=== PATIENT | female | born 1940 | race Caucasian/White ===

== ENCOUNTER 2017-05-17 17:19 | Inpatient (IN) | payer MEDICARE, OTHER ==
[~2017-05-17] VITALS: Ht 162.6 cm; Wt 66.4 kg
[2017-05-17 18:00] LABS: BASOPHIL 0.2 % (0-2); EOSINOPHIL 3.5 % (0-7); HCT 32.3 % (37.0-47.0); HGB 11.5 g/dl (12.5-16.0); LYMPHOCYTE 15.6 % (15-48); MCH 34.1 pg (25.0-31.0); MCHC 35.6 g/dL (32.0-36.0); MCV 95.8 fL (78.0-100.0); MONOCYTE 11.1 % (0-12); MPV 11.1 fL (6.0-9.5); NEUTROPHIL 69.6 % (41-80); PLT 168 K/uL (150-400); RBC 3.37 M/uL (4.20-5.40); RDW 12.8 % (11.5-14.0); WBC 12.3 K/uL (4.0-10.5)
[2017-05-17 18:04] LABS: INR 1.12 (0.9-1.2); PTT 30.6 SECONDS (23.2-31.4)
[2017-05-17 18:12] LABS: ALBUMIN 3.4 g/dL (3.4-4.8); BILIRUBIN - TOTAL 0.6 mg/dL (0.1-1.0); CREATININE 1.5 mg/dL (0.5-1.0); GLOBULIN (CALCULATION) 4.2 g/dL (2.2-4.2); POTASSIUM 3.2 mmol/L (3.5-5.1); TOTAL PROTEIN 7.6 g/dL (6.4-8.3)
[2017-05-17 18:14] LABS: TROPONIN T < 0.010 ng/mL
[2017-05-17 18:15] LABS: PRO-BNP 1595 pg/mL (0-450)
[2017-05-17 18:19] LABS: BILIRUBIN 1+ mg/dL (NEGATIVE); BLOOD NEGATIVE Ery/uL (NEGATIVE); CLARITY CLEAR (CLEAR); COLOR YELLOW (YELLOW); GLUCOSE (U) NORMAL (NORMAL); KETONE (U) NEGATIVE (NEGATIVE); LEUKOCYTES NEGATIVE Leu/uL (NEGATIVE); NITRITE NEGATIVE (NEGATIVE); PROTEIN 2+ mg/dL (NEGATIVE); SPECIFIC GRAVITY 1.025 (1.001-1.030); pH 5.5 (5.0-9.0)
[2017-05-17 18:27] LABS: BACTERIA TRACE; SQUAMOUS EPITHELIAL CELLS RARE; URINARY RBC RARE
[2017-05-17 18:28] LABS: AMORPHOUS URATES CRYSTALS MODERATE
[2017-05-18 00:05] LABS: CKMB 1.67 ng/mL (0.97-4.94); TROPONIN T 0.012 ng/mL
[2017-05-18 05:48] LABS: BASOPHIL 0 % (0-2); EOSINOPHIL 0 % (0-7); HCT 30.4 % (37.0-47.0); HGB 10.9 g/dl (12.5-16.0); LYMPHOCYTE 7.5 % (15-48); MCH 34.3 pg (25.0-31.0); MCHC 35.9 g/dL (32.0-36.0); MCV 95.6 fL (78.0-100.0); MONOCYTE 1.4 % (0-12); MPV 10.7 fL (6.0-9.5); NEUTROPHIL 91.1 % (41-80); PLT 141 K/uL (150-400); RBC 3.18 M/uL (4.20-5.40); RDW 12.7 % (11.5-14.0)
[2017-05-18 05:49] LABS: WBC 8.3 K/uL (4.0-10.5)
[2017-05-18 05:59] LABS: INR 1.21 (0.9-1.2); PROTHROMBIN TIME 14.9 SECONDS (11.7-14.0); PTT 43.6 SECONDS (23.2-31.4)
[2017-05-18 06:09] LABS: CKMB 1.81 ng/mL (0.97-4.94); TROPONIN T < 0.010 ng/mL
[2017-05-18 06:11] LABS: ALBUMIN 3.6 g/dL (3.4-4.8); BILIRUBIN - TOTAL 0.5 mg/dL (0.1-1.0); CREATININE 1.5 mg/dL (0.5-1.0); GLOBULIN (CALCULATION) 3.6 g/dL (2.2-4.2); MAGNESIUM 1.89 mg/dL (1.40-2.10); PHOSPHORUS 3.1 mg/dL (2.7-4.5); POTASSIUM 3.5 mmol/L (3.5-5.1); TOTAL PROTEIN 7.2 g/dL (6.4-8.3)
--- NOTE | 2017-05-18 17:23 | NUR ---
AFTER FIRST ASSESSMENT OF THE SHIFT MD SPOKE WITH AND ORDERED CT OF HEAD. PATIENT WAS NOTED TO BE LEANING TO LEFT SIDE, AAO X PERSON ONLY. STATED THAT SYMPTOMS HAVE BEEN PRESENT FOR 3-[address] OF HEAD CAME BACK NEGATIVE FOR HEMMORAGE. DR ORDERED TO TRANSFER PATIENT TO [facility] FOR MRI. WILL CONTINUE TO MONITOR.
== END 2017-05-19 02:25 | disposition other institution (70) | DRG 91 ==
LOC: FER 17:19 → FTCU 19:25
PROVIDERS: Emergency Medicine; ADMIT Internal Medicine Nephrology
DX: R29.810 Facial weakness (principal); J18.9 Pneumonia, unspecified organism; L89.151 Pressure ulcer of sacral region, stage 1; E11.9 Type 2 diabetes mellitus without complications; D63.8 Anemia in other chronic diseases classified elsewhere; G30.9 Alzheimer's disease, unspecified; J44.0 Chronic obstructive pulmonary disease with (acute) lower respiratory infection; I10 Essential (primary) hypertension; F02.80 Dementia in other diseases classified elsewhere, unspecified severity, without behavioral disturbance, psychotic disturbance, mood disturbance, and anxiety; R53.1 Weakness; E78.5 Hyperlipidemia, unspecified; R09.02 Hypoxemia; I25.10 Atherosclerotic heart disease of native coronary artery without angina pectoris; G47.33 Obstructive sleep apnea (adult) (pediatric); K21.9 Gastro-esophageal reflux disease without esophagitis; M10.9 Gout, unspecified; Z88.0 Allergy status to penicillin; Z88.2 Allergy status to sulfonamides; Z91.018 Allergy to other foods; Z91.010 Allergy to peanuts; Z79.899 Other long term (current) drug therapy
CPT/HCPCS: 36415; 36600; 70450; 71020; 80053; 81001; 82550; 82553; 82803; 82962; 83605; 83735; 83880; 84100; 84484; 85025; 85379; 85610; 85730; 87040; 87088; 87449; 93005; 93970; 94010; 94640; 97163; 97167; 97530; J1956; J2930

== ENCOUNTER 2020-12-08 14:06 | Inpatient (IN) | payer MEDICARE, OTHER ==
[~2020-12-08 14:06] MED LIST: ALLOPURINOL100 MG PO; ASPIR 8181 MG PO; ASPIRIN CHEWABL81 MG PO; BENZTROPINE MESY1 MG PO; BYSTOLIC10 MG PO; CARDIZEM CD120 MG PO; CERTAGEN1 EACH PO; CIPRO500 MG PO; CLARITIN10 MG PO; CLEOCIN300 MG PO; COZAAR100 MG PO; COZAAR50 MG PO; HALDOL5 MG PO; HYDROCODON-ACE1 EAC4 PO; JANUVIA100 MG PO; LASIX20 MG PO; LATUDA20 MG PO; LEVAQUIN500 MG PO; LOSARTAN-HCTZ1 EAC1 PO; LOVAZA1 GM PO; MEDROL 4MG DOSEP4 MG PO; METOPROLOL SUCC50 MG PO; METRONIDAZOLE500 MG PO; MIRTAZAPINE7.5 MG PO; MUCINEX 600MG600 MG PO; NORVASC5 MG PO; PERFOROMIS20 MCG/2 M INH; PREDNISONE 20MG20 MG PO; PRINIVIL20 MG PO; PROAIR HFA8.5 GM INH; REMERON15 MG PO; VIBRAMYCIN100 MG PO; [UNRECOGNIZED DRUG - OTHER] PO
[2020-12-08 16:18] LABS: BASOPHIL 0.7 % (0-2); EOSINOPHIL 3.7 % (0-7); HCT 37.4 % (37.0-47.0); HGB 12.7 g/dl (12.5-16.0); LYMPHOCYTE 28.2 % (15-48); MCV 97.1 fL (78.0-100.0); MONOCYTE 9.6 % (0-12); MPV 10.8 fL (6.0-9.5); NEUTROPHIL 57.5 % (41-80); NRBC 0; PLT 144 K/uL (150-400); RBC 3.85 M/uL (4.20-5.40); RDW 12.7 % (11.5-14.0); WBC 9.6 K/uL (4.0-10.5)
[2020-12-08 16:23] LABS: INR 1.01 (0.9-1.2); PROTHROMBIN TIME 12.6 SECONDS (11.4-13.6)
[2020-12-08 16:31] LABS: CORONAVIRUS 2019 SARS-COV-2 NEGATIVE (NEGATIVE); INFLUENZA A NAA NEGATIVE (NEGATIVE)
[2020-12-08 16:32] LABS: D-DIMER 2.43 ug/mLFEU (0.00-0.41)
[2020-12-08 16:49] LABS: ALBUMIN 3.2 g/dL (3.4-5.0); BILIRUBIN - TOTAL 0.4 mg/dL (0.2-1.0); BUN/CREAT RATIO (CALC) 11.4 RATIO; CREATININE 1.76 mg/dL (0.51-0.95); GLOBULIN (CALCULATION) 4.8 g/dL; POTASSIUM 3.7 mmol/L (3.5-5.1)
[2020-12-08] MEDS ORDERED: LEVOTHYROXINE75 MC2 PO (23:59)
[2020-12-09] MEDS ORDERED: MICRO-K10 MEQ PO
[2020-12-09 06:04] LABS: BASOPHIL 0.1 % (0-2); EOSINOPHIL 0 % (0-7); HCT 35.4 % (37.0-47.0); HGB 12.4 g/dl (12.5-16.0); LYMPHOCYTE 7.9 % (15-48); MCV 94.1 fL (78.0-100.0); MONOCYTE 0.8 % (0-12); MPV 10.9 fL (6.0-9.5); NRBC 0; PLT 160 K/uL (150-400); RBC 3.76 M/uL (4.20-5.40); RDW 12.8 % (11.5-14.0)
[2020-12-09 06:19] LABS: NEUTROPHIL 90.7 % (41-80)
[2020-12-09 06:37] LABS: ALBUMIN 2.9 g/dL (3.4-5.0); BILIRUBIN - TOTAL 0.4 mg/dL (0.2-1.0); BUN/CREAT RATIO (CALC) 13.9 RATIO; CREATININE 1.87 mg/dL (0.51-0.95); GLOBULIN (CALCULATION) 4.8 g/dL; POTASSIUM 3.6 mmol/L (3.5-5.1); TOTAL PROTEIN 7.7 g/dL (6.4-8.2)
[2020-12-10 04:59] LABS: BASOPHIL 0.2 % (0-2); EOSINOPHIL 0 % (0-7); LYMPHOCYTE 6.4 % (15-48); MCHC 34.4 g/dL (32.0-36.0); MCV 96.1 fL (78.0-100.0); MONOCYTE 2.9 % (0-12); MPV 11.3 fL (6.0-9.5); NEUTROPHIL 89.6 % (41-80); NRBC 0; PLT 147 K/uL (150-400); RBC 3.33 M/uL (4.20-5.40); RDW 12.9 % (11.5-14.0); WBC 17.9 K/uL (4.0-10.5)
[2020-12-10 05:17] LABS: BUN/CREAT RATIO (CALC) 16.7 RATIO; CREATININE 2.09 mg/dL (0.51-0.95); POTASSIUM 4.1 mmol/L (3.5-5.1)
[2020-12-11 05:58] LABS: BASOPHIL 0.2 % (0-2); EOSINOPHIL 0 % (0-7); HCT 34.4 % (37.0-47.0); HGB 12.1 g/dl (12.5-16.0); LYMPHOCYTE 6.1 % (15-48); MCH 33.3 pg (25.0-31.0); MCHC 35.2 g/dL (32.0-36.0); MCV 94.8 fL (78.0-100.0); MPV 11.2 fL (6.0-9.5); NEUTROPHIL 88.6 % (41-80); NRBC 0; PLT 182 K/uL (150-400); RBC 3.63 M/uL (4.20-5.40); RDW 12.7 % (11.5-14.0); WBC 19.4 K/uL (4.0-10.5)
[2020-12-11 06:12] LABS: C-REACTIVE PROTEIN 0.3 mg/dL (<=0.90); CREATININE 1.77 mg/dL (0.51-0.95); POTASSIUM 3.9 mmol/L (3.5-5.1)
[2020-12-12 07:23] LABS: BASOPHIL 0.2 % (0-2); EOSINOPHIL 0 % (0-7); HCT 34.6 % (37.0-47.0); HGB 12.1 g/dl (12.5-16.0); MCH 33.2 pg (25.0-31.0); MCV 94.8 fL (78.0-100.0); MONOCYTE 7.8 % (0-12); MPV 11.1 fL (6.0-9.5); NEUTROPHIL 81.2 % (41-80); NRBC 0; PLT 188 K/uL (150-400); RBC 3.65 M/uL (4.20-5.40); WBC 18.6 K/uL (4.0-10.5)
[2020-12-12 07:27] LABS: C-REACTIVE PROTEIN 0.3 mg/dL (<=0.90); CREATININE 1.58 mg/dL (0.51-0.95); POTASSIUM 3.6 mmol/L (3.5-5.1)
[2020-12-13 06:54] LABS: BASOPHIL 0.2 % (0-2); EOSINOPHIL 0.2 % (0-7); HCT 36.6 % (37.0-47.0); HGB 12.6 g/dl (12.5-16.0); LYMPHOCYTE 13.6 % (15-48); MCH 32.6 pg (25.0-31.0); MCHC 34.4 g/dL (32.0-36.0); MCV 94.8 fL (78.0-100.0); MONOCYTE 10.2 % (0-12); MPV 11.2 fL (6.0-9.5); NEUTROPHIL 73.7 % (41-80); NRBC 0.1; PLT 193 K/uL (150-400); RBC 3.86 M/uL (4.20-5.40); RDW 12.9 % (11.5-14.0); WBC 18.3 K/uL (4.0-10.5)
[2020-12-13 07:18] LABS: BUN/CREAT RATIO (CALC) 32.6 RATIO; CREATININE 1.38 mg/dL (0.51-0.95); POTASSIUM 3.7 mmol/L (3.5-5.1)
[2020-12-13 09:13] LABS: PRO-BNP 4557 pg/mL (<450)
--- NOTE | 2020-12-14 16:20 | NUR ---
12/14/20 Ms. Mckeon will be transferred to [facility]. [facility] was requested to brain picker 02 which had been delivered in anticipation of discharge.
[2020-12-15 06:50] LABS: BASOPHIL 0.4 % (0-2); EOSINOPHIL 2.1 % (0-7); HCT 39.5 % (37.0-47.0); HGB 13.7 g/dl (12.5-16.0); MCH 32.6 pg (25.0-31.0); MCHC 34.7 g/dL (32.0-36.0); MONOCYTE 8.2 % (0-12); MPV 11.2 fL (6.0-9.5); NEUTROPHIL 69.6 % (41-80); NRBC 0; PLT 193 K/uL (150-400); WBC 15.9 K/uL (4.0-10.5)
[2020-12-15 07:09] LABS: BUN/CREAT RATIO (CALC) 24.7 RATIO; CREATININE 1.46 mg/dL (0.51-0.95); POTASSIUM 3.4 mmol/L (3.5-5.1)
== END 2020-12-15 14:40 | disposition other institution (70) | DRG 193 ==
LOC: FER 14:06 → FMS 17:52
PROVIDERS: Allergy & Immunology Allergy; Emergency Medicine; Nurse Practitioner; ADMIT Internal Medicine
DX: J18.9 Pneumonia, unspecified organism (principal); J96.01 Acute respiratory failure with hypoxia; J44.0 Chronic obstructive pulmonary disease with (acute) lower respiratory infection; N17.9 Acute kidney failure, unspecified; I13.0 Hypertensive heart and chronic kidney disease with heart failure and stage 1 through stage 4 chronic kidney disease, or unspecified chronic kidney disease; J44.1 Chronic obstructive pulmonary disease with (acute) exacerbation; J98.19 Other pulmonary collapse; I25.10 Atherosclerotic heart disease of native coronary artery without angina pectoris; Z95.5 Presence of coronary angioplasty implant and graft; G47.33 Obstructive sleep apnea (adult) (pediatric); M10.9 Gout, unspecified; E78.5 Hyperlipidemia, unspecified; N18.30 Chronic kidney disease, stage 3 unspecified; E11.22 Type 2 diabetes mellitus with diabetic chronic kidney disease; E11.40 Type 2 diabetes mellitus with diabetic neuropathy, unspecified; Z20.822 Contact with and (suspected) exposure to COVID-19; M19.90 Unspecified osteoarthritis, unspecified site; K21.9 Gastro-esophageal reflux disease without esophagitis; I50.9 Heart failure, unspecified; Z66 Do not resuscitate; E03.9 Hypothyroidism, unspecified; J39.8 Other specified diseases of upper respiratory tract; T17.990A Other foreign object in respiratory tract, part unspecified in causing asphyxiation, initial encounter; Z79.82 Long term (current) use of aspirin; Z86.14 Personal history of Methicillin resistant Staphylococcus aureus infection; Z91.010 Allergy to peanuts; Z88.0 Allergy status to penicillin; Z88.2 Allergy status to sulfonamides; Z88.8 Allergy status to other drugs, medicaments and biological substances; Z91.018 Allergy to other foods; Z79.899 Other long term (current) drug therapy
CPT/HCPCS: 36415; 71045; 71250; 80048; 80053; 80202; 82962; 83880; 84145; 84484; 85025; 85379; 85610; 85730; 86140; 93005; 94640; 94667; 94668; 94760; 94762; 97162; 97530-GP; G0378; J0360; J1940; J1956; J2920; J2930; J3370; J7030; J7040; J7050; J7512; U0002

== ENCOUNTER 2021-04-11 15:18 | Inpatient (IN) | payer MEDICARE, OTHER ==
[~2021-04-11 15:18] MED LIST changes: +LEVOTHYROXINE75 MC2 PO; +MICRO-K10 MEQ PO
[2021-04-11 16:58] LABS: BASOPHIL 0.7 % (0-2); EOSINOPHIL 3.4 % (0-7); HCT 34.4 % (37.0-47.0); HGB 11.7 g/dl (12.5-16.0); LYMPHOCYTE 26.2 % (15-48); MCH 31.8 pg (25.0-31.0); MCV 93.5 fL (78.0-100.0); MONOCYTE 17.3 % (0-12); MPV 11.7 fL (6.0-9.5); NEUTROPHIL 52.2 % (41-80); NRBC 0; PLT 119 K/uL (150-400); RBC 3.68 M/uL (4.20-5.40); RDW 13.4 % (11.5-14.0); WBC 6.1 K/uL (4.0-10.5)
[2021-04-11 17:32] LABS: BUN/CREAT RATIO (CALC) 8.8 RATIO; CREATININE 4.87 mg/dL (0.51-0.95); POTASSIUM 3.8 mmol/L (3.5-5.1)
[2021-04-11 19:54] LABS: BILIRUBIN NEGATIVE (NEGATIVE); BLOOD NEGATIVE Ery/uL (NEGATIVE); CLARITY CLEAR (CLEAR); COLOR YELLOW (YELLOW); GLUCOSE (U) NORMAL (NORMAL); LEUKOCYTES NEGATIVE Leu/uL (NEGATIVE); NITRITE NEGATIVE (NEGATIVE); PROTEIN 3+ mg/dL (NEGATIVE); UROBILINOGEN 0.2 mg/dL (0.2-1.0); pH 6.5 (5.0-9.0)
[2021-04-11 20:00] LABS: BACTERIA 1+; URINARY RBC RARE
[2021-04-11 20:25] LABS: PROTHROMBIN TIME 12.5 SECONDS (11.4-13.6); PTT 29.7 SECONDS (22.2-34.7)
[2021-04-11 20:46] LABS: ALBUMIN 3.3 g/dL (3.4-5.0); BILIRUBIN - TOTAL 0.3 mg/dL (0.2-1.0); GLOBULIN (CALCULATION) 4.2 g/dL; TOTAL PROTEIN 7.5 g/dL (6.4-8.2)
[2021-04-11 20:48] LABS: CORONAVIRUS 2019 SARS-COV-2 NEGATIVE (NEGATIVE); INFLUENZA A NAA NEGATIVE (NEGATIVE)
[2021-04-11 20:50] LABS: BILIRUBIN - DIRECT <0.05 mg/dL (0.00-0.20); PHOSPHORUS 5.5 mg/dL (2.6-4.7)
[2021-04-11 20:51] LABS: MAGNESIUM 2.9 mg/dL (1.8-2.4)
[2021-04-12 07:06] LABS: BASOPHIL 0.6 % (0-2); HCT 30.7 % (37.0-47.0); HGB 10.7 g/dl (12.5-16.0); LYMPHOCYTE 33.1 % (15-48); MCH 32.7 pg (25.0-31.0); MCHC 34.9 g/dL (32.0-36.0); MCV 93.9 fL (78.0-100.0); MONOCYTE 14.7 % (0-12); MPV 11.6 fL (6.0-9.5); NEUTROPHIL 47.4 % (41-80); NRBC 0; RBC 3.27 M/uL (4.20-5.40); RDW 13.5 % (11.5-14.0); WBC 4.8 K/uL (4.0-10.5)
[2021-04-12 07:08] LABS: PLT 109 K/uL (150-400)
[2021-04-12 07:15] LABS: BILIRUBIN - TOTAL 0.3 mg/dL (0.2-1.0); BUN/CREAT RATIO (CALC) 8.9 RATIO; CREATININE 4.83 mg/dL (0.51-0.95); GLOBULIN (CALCULATION) 3.9 g/dL; POTASSIUM 3.4 mmol/L (3.5-5.1); TOTAL PROTEIN 6.9 g/dL (6.4-8.2)
[2021-04-12] MEDS ORDERED: HYDRALAZINE25 MG PO (10:53)
[2021-04-12] MEDS ORDERED: DALIRESP250 MCG PO (10:54)
[2021-04-12] MEDS ORDERED: SPIRIVA RESPIMAT4 GM INH (10:55)
[2021-04-12] MEDS ORDERED: AZELASTINE HCL6 ML EYEBOTH (10:56)
[2021-04-12] MEDS ORDERED: SPIRONOLACTONE25 M1 PO (10:58)
[2021-04-12] MEDS ORDERED: NYAMYC60 GM PO (10:59)
[2021-04-12] MEDS ORDERED: SSD25 GM TOP (11:00)
[2021-04-12] MEDS ORDERED: BYSTOLIC10 M1 PO (11:01)
[2021-04-12] MEDS ORDERED: LEVOTHYROXINE75 MC1 PO (11:03)
[2021-04-12] MEDS ORDERED: ROSUVASTATIN CAL5 MG PO (11:05)
--- NOTE | 2021-04-13 01:40 | NUR ---
Patient eyes glassy, coughing, patient sounds hoarse with communication. Temp 98.0 Lung sounds changed from dimished and scattered rhonchi from approximately 2336 to rales and expiratory wheezes. Vivek Sepulveda informed and in to view patient.
--- NOTE | 2021-04-13 03:48 | NUR ---
0348am Patient remains not feeling well. CXR completed. Patient temp is 98.3. Patient instructed to call out if needing drink or food. Will assure a staff memeber in room with patient and she is sitting in an upright position before any oral intake. Will pass this information on to other shifts. COVID/FLU swab completed and hand delivered to lab. Awaiting results. Unit Sec in TCU to call for nephrology consult when calls for their unit. Will also pass this along to day shift to assure that consult is called to see patient bakari. Discussed all with Vivek Turner.
[2021-04-13 04:17] LABS: CORONAVIRUS 2019 SARS-COV-2 NEGATIVE (NEGATIVE); INFLUENZA A NAA NEGATIVE (NEGATIVE)
--- NOTE | 2021-04-13 07:06 | NUR ---
0435am Tele monitor strip reviewed with Vivek Turner. No orders received.
[2021-04-13 07:08] LABS: BASOPHIL 0.6 % (0-2); HCT 30.2 % (37.0-47.0); HGB 10.3 g/dl (12.5-16.0); LYMPHOCYTE 38.9 % (15-48); MCH 32.2 pg (25.0-31.0); MCHC 34.1 g/dL (32.0-36.0); MCV 94.4 fL (78.0-100.0); MONOCYTE 10.1 % (0-12); MPV 11.4 fL (6.0-9.5); NEUTROPHIL 45.2 % (41-80); NRBC 0; RDW 13.3 % (11.5-14.0)
[2021-04-13 07:09] LABS: PLT 86 K/uL (150-400)
--- NOTE | 2021-04-13 07:17 | NUR ---
CALL PLACED TO NEPHROLOGY OFFICE, DR EVANS, FOR CONSULT. INFORMATION LEFT WITH JKAE, WITH NEPHROLOGY ANSWERING SERVICE
[2021-04-13 07:19] LABS: CREATININE 4.22 mg/dL (0.51-0.95); PHOSPHORUS 5.2 mg/dL (2.6-4.7); POTASSIUM 3.1 mmol/L (3.5-5.1); URIC ACID 10.4 mg/dL (2.6-6.2)
[2021-04-14 07:01] LABS: BUN/CREAT RATIO (CALC) 8.6 RATIO; CREATININE 3.71 mg/dL (0.51-0.95); POTASSIUM 2.7 mmol/L (3.5-5.1)
[2021-04-14 07:04] LABS: MAGNESIUM 1.9 mg/dL (1.8-2.4)
--- NOTE | 2021-04-14 11:56 | NUR ---
04/14/21 Ms. Mckeon and her spouse share a home together. A is current and Ms. Mckeon would like to continue with the services. Pt educated to [facility] later [facility]. A referral was made to [facility] via [facility]. - Patient has a rw, 3in1, and s. chair. - Ms. Mckeon reports to have difficulty with housework. - She also reports to have macular degeneration. - Ms. Mckeon was educated [facility] [employer] independent living [facility] and [facility] homemaking services. - Please notify [facility] if patient is discharged over the weekend. A report was given to MS CARYE Iglesias.
[2021-04-14 15:49] LABS: BUN/CREAT RATIO (CALC) 8.2 RATIO; CREATININE 3.55 mg/dL (0.51-0.95); POTASSIUM 3.1 mmol/L (3.5-5.1); VITAMIN D (25-OH) 21.8 ng/mL (30.0-100.0)
--- NOTE | 2021-04-14 17:44 | NUR ---
1515 24 HOUR URINE WAS STARTED. EXPLAINED THE 24 HOUR URINE AND EMPITIED THE LOOMIS CATH BEFORE STARTING THE 24 HOUR URINE PLACED THE LOOMIS CATH ON ICE AND ALSO THE PLACED THE COLLECTION JUG IN THE BATHROOM ALSO ON ICE. WILL NATALYA FOR CHANGES.
[2021-04-15 06:34] LABS: BILIRUBIN - TOTAL 0.2 mg/dL (0.2-1.0); CREATININE 3.16 mg/dL (0.51-0.95); GLOBULIN (CALCULATION) 4.1 g/dL; PHOSPHORUS 2.2 mg/dL (2.6-4.7); TOTAL PROTEIN 7.1 g/dL (6.4-8.2)
[2021-04-15 06:37] LABS: MAGNESIUM 1.4 mg/dL (1.8-2.4)
[2021-04-15 16:42] LABS: URINE CREATININE 19.46 mg/dL (29.00-226.00)
[2021-04-16 05:58] LABS: BASOPHIL 0.3 % (0-2); EOSINOPHIL 7.4 % (0-7); HCT 31.5 % (37.0-47.0); LYMPHOCYTE 32.5 % (15-48); MCH 32.1 pg (25.0-31.0); MCHC 34.9 g/dL (32.0-36.0); MCV 91.8 fL (78.0-100.0); MONOCYTE 8.3 % (0-12); MPV 11.6 fL (6.0-9.5); NRBC 0; RBC 3.43 M/uL (4.20-5.40); RDW 13.7 % (11.5-14.0); WBC 5.8 K/uL (4.0-10.5)
[2021-04-16 05:59] LABS: PLT 85 K/uL (150-400)
[2021-04-16 06:23] LABS: BUN/CREAT RATIO (CALC) 5.8 RATIO; CREATININE 2.76 mg/dL (0.51-0.95); POTASSIUM 3.7 mmol/L (3.5-5.1)
[2021-04-16] MEDS ORDERED: NORVASC5 MG PO (14:24)
[2021-04-16] MEDS ORDERED: LASIX40 MG PO (17:01)
[2021-04-17 15:06] LABS: A/G RATIO 1.1 (0.7-1.7); ALBUMIN 3.2 g/dL (2.9-4.4); ALPHA-1-GLOBULIN 0.2 g/dL (0.0-0.4); ALPHA-2-GLOBULIN 0.9 g/dL (0.4-1.0); BETA GLOBULIN 0.6 g/dL (0.7-1.3); GAMMA GLOBULIN 1.2 g/dL (0.4-1.8); IMMUNOGLOBULIN A, QN, SERUM 78 mg/dL (64-422); IMMUNOGLOBULIN G, QN, SERUM 1293 mg/dL (586-1602); IMMUNOGLOBULIN M, QN, SERUM 206 mg/dL (26-217); M-SPIKE Not Observed g/dL (Not Observed); PROTEIN, TOTAL, SERUM 6.2 g/dL (6.0-8.5)
--- NOTE | 2021-04-25 16:18 | NUR ---
DIEGO CARRILLO THAT PT. HAS BEEN APPROVED BY INSURANCE. ADVISED DR. SINGER AND HE WILL WRITE D/C SUMMARY. SPOKE WITH LORENA PT MAY ADMIT TODAY 04/25/21. REPORT NUMBER IS [phone] FOR RACHELE ALVAREZ. FAX NUMBER IS [phone]
--- NOTE | 2021-04-25 16:34 | NUR ---
SON, TRAY IS VISITING FATHER, ADVISED HIM OF ACCEPTANCE AT [facility]. TRAY IS WILLING TO TRANSPORT PATIENT. TRAY WAS ON THE PHONE WITH , AND HE ADVISED HER OF THE TRANSFER.
== END 2021-04-16 18:15 | disposition home health service (06) | DRG 682 ==
LOC: FER 15:18 → FMS 19:51
PROVIDERS: Internal Medicine Nephrology; Nurse Practitioner; Nurse Practitioner Family; ADMIT Internal Medicine
DX: N17.9 Acute kidney failure, unspecified (principal); G93.41 Metabolic encephalopathy; I13.0 Hypertensive heart and chronic kidney disease with heart failure and stage 1 through stage 4 chronic kidney disease, or unspecified chronic kidney disease; I50.32 Chronic diastolic (congestive) heart failure; N18.30 Chronic kidney disease, stage 3 unspecified; E11.22 Type 2 diabetes mellitus with diabetic chronic kidney disease; E83.52 Hypercalcemia; E86.9 Volume depletion, unspecified; E87.6 Hypokalemia; Z20.822 Contact with and (suspected) exposure to COVID-19; E86.0 Dehydration; J44.9 Chronic obstructive pulmonary disease, unspecified; I25.10 Atherosclerotic heart disease of native coronary artery without angina pectoris; G47.33 Obstructive sleep apnea (adult) (pediatric); K21.9 Gastro-esophageal reflux disease without esophagitis; E11.40 Type 2 diabetes mellitus with diabetic neuropathy, unspecified; M19.90 Unspecified osteoarthritis, unspecified site; E78.5 Hyperlipidemia, unspecified; M10.9 Gout, unspecified; D63.1 Anemia in chronic kidney disease; Z88.0 Allergy status to penicillin; Z88.1 Allergy status to other antibiotic agents; Z91.010 Allergy to peanuts; Z88.6 Allergy status to analgesic agent; Z87.01 Personal history of pneumonia (recurrent); Z98.890 Other specified postprocedural states; Z90.49 Acquired absence of other specified parts of digestive tract; Z79.51 Long term (current) use of inhaled steroids; Z79.899 Other long term (current) drug therapy; Z95.5 Presence of coronary angioplasty implant and graft
CPT/HCPCS: 36415; 36600; 71045; 76770; 80048; 80053; 81001; 82040; 82247; 82248; 82306; 82330; 82570; 82784; 82803; 82962; 83036; 83605; 83735; 83880; 83970; 84075; 84100; 84145; 84155; 84156; 84165; 84300; 84450; 84460; 84550; 85025; 85610; 85730; 86335; 93005; 94010; 94640; 94668; 96374; 97110; 97161; 97166; 97535; C9113; G0378; J0360; J1644; J2405; J3475; J7030; U0002

== ENCOUNTER 2021-10-31 16:57 | Emergency (ER) | payer MEDICARE, OTHER ==
[~2021-10-31 16:57] MED LIST changes: +AZELASTINE HCL6 ML EYEBOTH; +BYSTOLIC10 M1 PO; +DALIRESP250 MCG PO; +HYDRALAZINE25 MG PO; +LASIX40 MG PO; +LEVOTHYROXINE75 MC1 PO; +NYAMYC60 GM PO; +ROSUVASTATIN CAL5 MG PO; +SPIRIVA RESPIMAT4 GM INH; +SPIRONOLACTONE25 M1 PO; +SSD25 GM TOP
[2021-10-31 18:49] LABS: BASOPHIL 0.7 % (0-2); EOSINOPHIL 5.1 % (0-7); HCT 37.3 % (37.0-47.0); HGB 12.9 g/dl (12.5-16.0); LYMPHOCYTE 32.5 % (15-48); MCH 31.9 pg (25.0-31.0); MCHC 34.6 g/dL (32.0-36.0); MCV 92.3 fL (78.0-100.0); MONOCYTE 12.5 % (0-12); MPV 10.9 fL (6.0-9.5); NEUTROPHIL 48.9 % (41-80); NRBC 0; PLT 178 K/uL (150-400); RBC 4.04 M/uL (4.20-5.40); RDW 12.2 % (11.5-14.0); WBC 6.8 K/uL (4.0-10.5)
[2021-10-31 19:21] LABS: CORONAVIRUS 2019 SARS-COV-2 NEGATIVE (NEGATIVE); INFLUENZA A NAA NEGATIVE (NEGATIVE)
[2021-10-31 19:30] LABS: ALBUMIN 3.3 g/dL (3.4-5.0); BILIRUBIN - TOTAL 0.3 mg/dL (0.2-1.0); BUN/CREAT RATIO (CALC) 14.2 RATIO; CREATININE 1.83 mg/dL (0.51-0.95); GLOBULIN (CALCULATION) 3.7 g/dL; POTASSIUM 3.2 mmol/L (3.5-5.1)
[2021-10-31 19:38] LABS: LACTIC ACID 1.1 mmol/L (0.4-1.9)
[2021-10-31 20:03] LABS: BILIRUBIN NEGATIVE (NEGATIVE); BLOOD NEGATIVE Ery/uL (NEGATIVE); CLARITY CLEAR (CLEAR); COLOR YELLOW (YELLOW); GLUCOSE (U) NORMAL (NORMAL); LEUKOCYTES NEGATIVE Leu/uL (NEGATIVE); NITRITE NEGATIVE (NEGATIVE); PROTEIN 1+ mg/dL (NEGATIVE); UROBILINOGEN 0.2 mg/dL (0.2-1.0)
[2021-10-31] MEDS ORDERED: K-TAB ER20 MEQ PO (22:16)
== END 2021-10-31 23:53 | disposition home or self-care (01) ==
LOC: FER 16:57
PROVIDERS: Nurse Practitioner Family
DX: E87.6 Hypokalemia (principal); I50.9 Heart failure, unspecified; J44.9 Chronic obstructive pulmonary disease, unspecified; E11.22 Type 2 diabetes mellitus with diabetic chronic kidney disease; N18.9 Chronic kidney disease, unspecified; Z20.822 Contact with and (suspected) exposure to COVID-19; Z99.81 Dependence on supplemental oxygen; Z88.0 Allergy status to penicillin; Z88.2 Allergy status to sulfonamides; Z88.5 Allergy status to narcotic agent
CPT/HCPCS: 36415; 36600; 71250; 80053; 81003; 82728; 82803; 83605; 83880; 84145; 84484; 85025; 87040; 87088; 93005; U0002